=== PATIENT | female | born 1995 | race African-American/Black ===

== ENCOUNTER 2016-12-21 17:37 | Emergency (ER) | payer MEDICAID ==
[~2016-12-21] VITALS: Ht 167.6 cm; Wt 93.3 kg
[2016-12-21 17:57] VITALS: BP 130/82
[2016-12-21] MEDS ORDERED: DOCUSATE 50 MG/5 ML ORAL SOL OT PRN (19:30)
[2016-12-21] MEDS ORDERED: DOCUSATE 50 MG/5 ML ORAL SOL ONE (19:46)
== END 2016-12-21 21:22 | disposition home or self-care (01) ==
LOC: ED 21:10
DX: H61.21 Impacted cerumen, right ear (principal)
CPT/HCPCS: 69210

== ENCOUNTER 2020-01-02 13:20 | Emergency (ER) | payer MEDICAID, OTHER ==
[~2020-01-02] VITALS: Ht 170.2 cm; Wt 114.3 kg
[2020-01-02 13:37] VITALS: BP 127/79
--- NOTE | 2020-01-02 14:11 | NUR ---
LESIONS RIGHT ARM AND LEFT SHOULDER
== END 2020-01-02 14:38 | disposition home or self-care (01) ==
LOC: ED 14:00
DX: L03.113 Cellulitis of right upper limb (principal); L03.114 Cellulitis of left upper limb
CPT/HCPCS: 99283

== ENCOUNTER 2020-10-30 11:21 | Emergency (ER) | payer OTHER ==
[~2020-10-30] VITALS: Ht 167.6 cm; Wt 123.9 kg
[2020-10-30 11:25] VITALS: BP 150/88
--- NOTE | 2020-10-30 11:43 | NUR ---
EMPLOYEE RELATIONS REPRESENTATIVE: PT IN RADIOLOGY, THEN TO GO TO ROOM.
--- NOTE | 2020-10-30 11:51 | NUR ---
PT RETURNS FROM XR.
--- NOTE | 2020-10-30 12:26 | NUR ---
AIR CAST APPLIED TO L ANKLE, CMS INTACT. PT HAS OWN CRUTCH FROM HOME, DECLINES CRUTCHES FROM ED. D/C INSTRUCTIONS, MEDS & F/U APPT RV'WD WITH PT, SHE VERBALIZES UNDERSTANDING. ASSISTED OUT OF ED VIA WC.
== END 2020-10-30 12:27 | disposition home or self-care (01) ==
LOC: ED 12:15
DX: S93.402A Sprain of unspecified ligament of left ankle, initial encounter (principal); E66.01 Morbid (severe) obesity due to excess calories; Z88.0 Allergy status to penicillin; X50.0XXA Overexertion from strenuous movement or load, initial encounter; Y93.89 Activity, other specified; Y92.410 Unspecified street and highway as the place of occurrence of the external cause; Y99.8 Other external cause status; Z68.41 Body mass index [BMI] 40.0-44.9, adult
CPT/HCPCS: 99284